=== PATIENT | female | born 1995 | race Caucasian/White ===

== ENCOUNTER 2019-07-12 16:24 | Emergency (ER) | payer BC ==
--- NOTE | 2019-07-12 17:11 | RAD ---
EXAM: 3 views of the right hand COMPARISON: None HISTORY: Hand pain after cat bite FINDINGS: 3 views of the hand shows no evidence of acute fracture or dislocation. There is a plate an d screws in the index finger metacarpal without perihardware lucency or fracture. No degenerative changes are seen. No soft tissue swelling is present. IMPRESSION: Unremarkable exam.
[2019-07-12] MEDS ORDERED: Adacel (T-DAP) 0.5 ML SYRINGE ONE (17:18)
[2019-07-12] MEDS ORDERED: Bacitracin 1 PK ONE (17:20)
== END 2019-07-12 17:38 | disposition home or self-care (01) ==
LOC: ERS 16:24
DX: S60.811A Abrasion of right wrist, initial encounter (principal); S60.511A Abrasion of right hand, initial encounter; S60.512A Abrasion of left hand, initial encounter; F41.9 Anxiety disorder, unspecified; F32.9 Major depressive disorder, single episode, unspecified; Z79.899 Other long term (current) drug therapy; W55.01XA Bitten by cat, initial encounter
CPT/HCPCS: 90471; 90715